=== PATIENT | female | born 1995 | race Caucasian/White ===

== ENCOUNTER 2019-05-09 10:12 | Inpatient (IN) | payer BC ==
[2019-05-09 10:49] VITALS: BMI 39.5
[2019-05-09] MEDS ORDERED: hydrALAZINE 20 MG/ML VIAL SLOW IVP PRN ×2 (11:12→13:28)
[2019-05-09] MEDS: Betamet Acet/Betamet Na Ph 30 MG/5 ML VIAL IM SCH (11:26)
[2019-05-09] MEDS ORDERED: Ondansetron PF 4 MG/2 ML Vial IVP PRN (13:28)
[2019-05-09] MEDS ORDERED: Promethazine HCl 25 MG/ML VIAL IM PRN (13:28)
[2019-05-09] MEDS ORDERED: NIFEdipine 10 MG CAP ONE (13:29)
[2019-05-09] MEDS ORDERED: NIFEdipine 10 MG CAP PO PRN (13:30)
--- NOTE | 2019-05-09 13:35 | PDOC.LDHP ---
Labor and Delivery H&P Chief complaint: other (increased BP at the office) HPI: Pt presents after office visit today with severe range BP noted there. Increased edema, no other PIH sx. On arrival to L and D and during observation , severe range BP noted. Current gestational age (weeks): 33 Due date: 06/21/19 Grav: 1 Para: 0 OB History Details: IUGR noted approx 30 weeks, seen by MFM, growth has improved Current complications: preeclampsia with severe features, IUGR, breech Abnormal US findings: Yes (breech, restricted growth) Past Medical History: none Previous surgical history: other (tonsil) Allergies/Adverse Reactions: Allergies Allergy/AdvReac Type Severity Reaction Status Date / Time No Known Allergies Allergy Unverified 05/09/19 10:47 Social history: none - Physical Exam Abnormal vital signs: severe range BP 130-170/80-100 General: NAD Heart: RRR Lungs: CTAB Abdomen: gravid Extremeties: pitting edema FHT: category 1 - OB Labs Blood type: O RH: negative Antibody Screen: negative HIV: negative RPR: negative HEPSAg: negative 1 hour GCT: positive 3 hour GTT: WNL GBS: unknown Additional Labs: CT pos with repeat testing neg - Assessment L&D Assessment: medically indicated induction (for preeclampsia) - Plan Plan: admit to L&D, informed consent obtained, anesthesia consult for pain management, other (NICU consult, magnesium for seizure prophylaxis if indicated , CS if delivery indicated today for breech, sp Celestone x 1) -: A/P: 24yo G1 @ 33.6 w severe range BP, admit for planned delivery. SP steroids @ 1126am today on initial presentation. Procardia x 1 given now, hydralazine PRN ordered. If BP sustained severe will start magnesium and move to delivery today, CS if breech persists at the time of delivery.
[2019-05-09 13:50] LABS: #Basophils 0.1 thou/uL (0.0-0.2); #Lymphocytes 1.7 thou/uL (1.20-3.40); #Monocytes 0.4 thou/uL (0.11-0.59); #Neutrophils 9.8 thou/uL (1.40-6.50); %Basophils 0.5 % (0.0-1.0); %Eosinophils 0.3 % (0.0-10.0); %Lymphocytes 14.5 % (21.0-51.0); %Neutrophils 81.8 % (42.0-75.0); Hemoglobin 14.2 g/dL (12.0-16.0); Mean Corpuscular HGB CONC 33.8 g/dL (32.0-36.0); Mean Corpuscular Hemoglobin 30.6 pg (27.0-31.0); Mean Corpuscular Volume 90.6 fL (78.0-98.0); Platelet Count 230 thou/uL (130-400); RBC Distribution Width 12.6 % (11.5-14.5); Red Blood Cell (RBC) Count 4.65 mill/uL (4.20-5.40)
[2019-05-09 14:20] LABS: ALT (SGPT) 12 U/L (8-55); AST (SGOT) 16 U/L (5-34); Albumin 3.8 g/dL (3.5-5.0); Alkaline Phosphatase 132 U/L (40-150); Anion Gap 12 mmol/L (10-20); BUN (Urea Nitrogen) 6 mg/dL (7.0-18.7); Bilirubin, Total 0.3 mg/dL (0.2-1.2); Calc. Creatinine Clearance 200 mL/min (70-130); Calcium 9.6 mg/dL (7.8-10.44); Carbon Dioxide 22 mmol/L (22-29); Chloride 104 mmol/L (98-107); Estimated GFR-MDRD Greater than 90; Globulin 2.9 g/dL (2.4-3.5); Glucose 69 mg/dL (70-105); Potassium 4.2 mmol/L (3.5-5.1); Protein, Total 6.7 g/dL (6.0-8.3); Sodium 134 mmol/L (136-145)
[2019-05-09 14:33] LABS: Syphilis Antibody Nonreactive (Nonreactive); Syphilis Antibody Index 0.03 S/CO (<1.00 Non-Reactive)
[2019-05-09 14:37] LABS: HBSAg Index 0.21 S/CO (0-0.99); Hep B Surf Ag Non-Reactive S/CO (NonReactive)
--- NOTE | 2019-05-09 15:01 | PDOC.EVN ---
Event Note - Event Note Event Note: Addendum to H and P: US reviewed and VTX presentation at time of BPP today. Will plan to repeat US prior to starting IOL to confirm presentation.
--- NOTE | 2019-05-09 15:18 | PDOC.APC ---
Antepartum Consult JULIA CORONA is a 24 year old female at [33 6/7] gestational weeks. I was asked by Dr Castro to speak with the patient regarding anticipated course for a baby born at 33-34 weeks. I spoke with the patient and her father. I outlined that the timing and mode of delivery is a decision that will be made by the OB service. Once the patient is taken for delivery, the resuscitation team will be present. The initial focus will be on respiratory stabilization and may include minimal assistance, CPAP or intubation with surfactant administration. I discussed that the patient will need to be admitted to the NICU in an isolette due to temperature instability associated with prematurity. We will then obtain IV access (peripheral will be first line, umbilical if unable to obtain peripheral) as babies are at risk for hypoglycemia. We discussed that babies born are at higher risk for feeding intolerance, infection and jaundice. I discussed that breastmilk is the best nutrition for babies and she is strongly encouraged to pump after delivery. Mother plans to breastfeed. I explained that the duration of hospital stay will be determined on the clinical course of the baby. I outlined the milestones that needed to be achieved to ensure safe discharge home. They had the opportunity to ask questions. Mother mentioned a "family history of SIDS" in her sibling and cousin. She stated she planned to cosleep given this history. We talked about the increased risk of associated with cosleeping and discussed ways to decrease risk of SIDS ( exclusive , separate sleep space free of blankets and stuffed animals, single fitted sheet, flat on back). She inquired about home monitoring. We discussed that babies are not routinely discharged home from this NICU with home monitoring unless on oxygen and that the AAP does not support the use of consumer products for O2/apnea monitoring as there has been no evidence that it decreases the risk of SIDS beyond that of safe sleep recommendations. I encouraged them to contact our service again if additional questions arise. I spent 30 minutes in consultation with the patient including face to face education and coordination of care. Labs: Ante Labs Hep Bs Antigen Non-Reactive S/CO (NonReactive) 05/09/19 13:38
--- NOTE | 2019-05-10 08:48 | PDOC.LDPN ---
Labor & Delivery Progress Note - Subjective Subjective: comfortable - Objective Vital signs reviewed and normal: yes (normal to mild range BP) General: NAD, resting FHT: category 1 - Assessment (1) Preeclampsia Code(s): O14.90 - UNSPECIFIED PRE-ECLAMPSIA, UNSPECIFIED TRIMESTER Current Visit: Yes Status: Acute Plan: continue plan of care -: A/P: HD #2, 34.0 weeks, admitted yesterday with severe range BP noted in clinic and on arrival to L and D. BP responded to one dose of nifedipine 10mg yesterday afternoon and have been normal to mild range for over 12 hours. We discussed continued close monitoring today, 2nd dose of celestone due at 1130, indications for delivery (severe BP today, requires BP med today, indication) vs. discharge criteria tomorrow if she is stable (normal to mild BP only, normal BPP and FHT and normal AM labs). Pt aware that NICU is full and that in the event she delivers and it is full the baby may be transferred to another hospital.
[2019-05-10] MEDS: Betamet Acet/Betamet Na Ph 30 MG/5 ML VIAL IM SCH (12:20)
[2019-05-11 06:03] LABS: Hemoglobin 12.4 g/dL (12.0-16.0); Mean Corpuscular HGB CONC 33.4 g/dL (32.0-36.0); Mean Corpuscular Hemoglobin 30.7 pg (27.0-31.0); Mean Corpuscular Volume 92.1 fL (78.0-98.0); Platelet Count 196 thou/uL (130-400); RBC Distribution Width 12.5 % (11.5-14.5); Red Blood Cell (RBC) Count 4.05 mill/uL (4.20-5.40); White Blood Cell (WBC) Count 12.4 thou/uL (4.8-10.8)
[2019-05-11 06:23] LABS: ALT (SGPT) 13 U/L (8-55); AST (SGOT) 15 U/L (5-34); Albumin 3.4 g/dL (3.5-5.0); Alkaline Phosphatase 106 U/L (40-150); Anion Gap 11 mmol/L (10-20); BUN (Urea Nitrogen) 8 mg/dL (7.0-18.7); Bilirubin, Total 0.2 mg/dL (0.2-1.2); Calc. Creatinine Clearance 203 mL/min (70-130); Calcium 8.8 mg/dL (7.8-10.44); Carbon Dioxide 22 mmol/L (22-29); Chloride 106 mmol/L (98-107); Estimated GFR-MDRD Greater than 90; Globulin 2.4 g/dL (2.4-3.5); Glucose 87 mg/dL (70-105); Protein, Total 5.8 g/dL (6.0-8.3); Sodium 135 mmol/L (136-145)
--- NOTE | 2019-05-11 09:19 | PDOC.LDPN ---
Labor & Delivery Progress Note - Subjective Subjective: comfortable - Objective Vital signs reviewed and normal: yes General: NAD FHT: category 1 - Assessment (1) Preeclampsia Code(s): O14.90 - UNSPECIFIED PRE-ECLAMPSIA, UNSPECIFIED TRIMESTER Current Visit: Yes Status: Acute Plan: continue plan of care, other -: A/P: Preeclampsia without severe features @ 34.1 with steroid benefit today at 1130. BP have been normal last 24hours. Labs WNL this AM, NST reactive, BPP report pending. Discussed close out patient monitoring if DC today with visits twice weekly, kick counts, BP at home and deliver for severe BP or features.
--- NOTE | 2019-05-11 09:53 | ULT ---
NONSTRESS BIOPHYSICAL PROFILE: HISTORY: Hypertension. COMPARISON: None. TECHNIQUE: Nonstress biophysical profile is performed. FINDINGS: Single intrauterine gestation. Vertex presentation. Anterior placenta. Limited evaluation for the presence or absence of previa. Cervical length appears to be between 4 and 4.8 cm. heart tones with a rate of 139 b.p.m. Amniotic fluid index is 5.0. NONSTRESS BIOPHYSICAL PROFILE: tone: 2. breathin. movement: 2. Amniotic fluid: 2. IMPRESSION: 1. Single intrauterine gestation. Vertex presentation. 2. heart tones with a rate of 139 b.p.m. 3. Nonstress biophysical profile score is 6 out of 8. 4. Amniotic fluid index of 5.0. Oligohydramnios. 5. Results of the study conveyed to Dr. Castro via [employer] and via phone call on 05/11/2019 at 8 :52 a.m. CODE CR POS: [facility]
--- NOTE | 2019-05-11 15:50 | ULT ---
DOPPLER STUDY: 05/11/19 Color Doppler with spectral analysis and velocity recordings obtained of umbilical artery. FINDINGS/IMPRESSION: Umbilical artery at placenta: Peak systolic 79 cm/s. End diastolic 37 cm/s. Mid umbilical artery: Peak systolic 91 cm/s. End diastolic 45 cm/s. Umbilical artery at insertion: Peak systolic 61 cm/s. End diastolic 20 cm/s. POS: [facility]
[2019-05-11 15:53] VITALS: BP 132/82; TEMP 98.6
--- NOTE | 2019-05-11 15:57 | ULT ---
BIOPHYSICAL PROFILE: 05/11/19 Indications: access status FINDINGS/IMPRESSION: movement: Score 2 tone: Score 2 breathing: Score 2 Amniotic fluid: Score 2 Total score: 8/8. The ASHLEY is recorded at 6.4 which indicates oligohydramnios. heart rate recorded at 144 beats per minute. Position: Vertex. Placenta: Anterior. POS: [facility]
--- NOTE | 2019-05-11 16:05 | PDOC.EVN ---
Event Note - Event Note Event Note: BPP 04/05, ASHLEY improved with hydration, good FM, reassuring status. Will FU Tuesday in office for BPP/OBV and labs, close out patient monitoring, continue BP checks at home.
--- NOTE | 2019-05-12 05:51 | DIS ---
DATE OF ADMISSION: 05/09/2019 DATE OF DISCHARGE: 05/11/2019 ADMISSION DIAGNOSIS: 33 weeks and 6 days, elevated blood pressures. DISCHARGE DIAGNOSIS: 34 weeks and 1 day with preeclampsia without severe features. HOSPITAL COURSE: Ms. Mary Loza was admitted after elevated blood pressures noted in the clinic and on arrival to Labor and Delivery at that time, she was noted to have a series of severe range blood pressures. She was admitted for observation and steroids. She received one oral dose of Procardia shortly after admission on 05/09/2019 and remained within normal to mild range pressures only, subsequent days in the hospital. The patient received her steroid benefit today the at approximately 11:30 this morning. She had normal CBC and CMP. She had a biophysical profile this morning that was 6/8 with breathing not appreciated and a repeat biophysical profile with a BPP of 8/8, reactive NST and ASHLEY just over 6 cm. The patient appreciated good movement throughout the day. She denies any symptoms of preeclampsia and her blood pressures were normal. She was discharged home today with instructions for close monitoring of her blood pressure at home. She has a blood pressure cuff and has been checking it regularly. She will continue to do so. She will come weekly to my office for exam, blood pressure check, lab evaluation, and surveillance. We will plan for delivery at 37 weeks and less indicated sooner for severe features. The patient has been given ER warnings and she agrees with the plan of care. Job ID: [id number]
== END 2019-05-11 16:33 | disposition home or self-care (01) | DRG 833 ==
LOC: L&D/OP 10:12 → EEVIPCON 15:42 → L&D 15:42 → 3SE 05-10 10:20
PROVIDERS: ADMIT Obstetrics & Gynecology; ATTEND Obstetrics & Gynecology
DX: O14.93 Unspecified pre-eclampsia, third trimester (principal); O36.5930 Maternal care for other known or suspected poor fetal growth, third trimester, not applicable or unspecified; O32.1XX0 Maternal care for breech presentation, not applicable or unspecified; Z3A.33 33 weeks gestation of pregnancy; Z67.91 Unspecified blood type, Rh negative
CPT/HCPCS: 36415; 76700; 76815; 76819; 80053; 85025; 85027; 86780; 86850; 86870; 86900; 86901; 87077; 87081; 87340; J0702

== ENCOUNTER 2019-05-14 09:22 | Day surgery (SDC) | payer BC ==
[2019-05-14 10:07] VITALS: BMI 39.6
[2019-05-14] MEDS ORDERED: Lidocaine 1% (PF) 30 ML VIAL SC PRN (10:13)
[2019-05-14] MEDS ORDERED: Promethazine HCl 25 MG/ML VIAL IM PRN (10:13)
[2019-05-14] MEDS ORDERED: Ondansetron PF 4 MG/2 ML Vial IVP PRN (10:13)
[2019-05-14] MEDS ORDERED: hydrALAZINE 20 MG/ML VIAL SLOW IVP PRN (10:13)
[2019-05-14] MEDS ORDERED: Butorphanol Tartrate 1 MG/ML VIAL SLOW IVP PRN (10:13)
[2019-05-14] MEDS ORDERED: Calcium Gluc 4.6 MEQ/10 ML (100 MG/ML) SLOW IVP PRN (10:13)
[2019-05-14] MEDS ORDERED: HYDROcodone/Acetaminophen 5/325 mg Tablet PO PRN ×2 (10:13)
[2019-05-14] MEDS ORDERED: Ibuprofen 800 MG TAB PO PRN (10:13)
[2019-05-14] MEDS ORDERED: NS / Oxytocin 40 units/1000ml 1,000 ML IV PRN (10:13)
[2019-05-14] MEDS ORDERED: Misoprostol 100 MCG TAB VAG SCH (10:15)
[2019-05-14] MEDS ORDERED: Magnesium Sulfate 20 GM/WATER 500 ML BAG IVPB SCH (10:15)
[2019-05-14] MEDS ORDERED: NS w/ Oxytocin 10 units 500 ML IV SCH (10:15)
[2019-05-14] MEDS ORDERED: Magnesium Sulfate 20 gm/500 ml 20 GM/500 ML BAG IVPB SCH (10:15)
[2019-05-14] MEDS ORDERED: Penicillin G Potassium 5 MILL.UNITS in Sodium Chloride 0.9% 100 ML IVPB SCH (10:15)
[2019-05-14] MEDS ORDERED: Penicillin G 2.5 MILL.units 2.5 MILL.UNITS in Premix Bag 1 BAG IVPB SCH (10:15)
[2019-05-14] MEDS ORDERED: Lactated Ringer's 1,000 ML IV SCH (10:15)
[2019-05-14] MEDS ORDERED: NIFEdipine 10 MG CAP PO PRN (10:16)
[2019-05-14] MEDS ORDERED: NIFEdipine 10 MG CAP ONE (10:49)
[2019-05-14 11:58] LABS: Hemoglobin 13.8 g/dL (12.0-16.0); Mean Corpuscular HGB CONC 33.3 g/dL (32.0-36.0); Mean Corpuscular Hemoglobin 30.6 pg (27.0-31.0); Mean Corpuscular Volume 91.7 fL (78.0-98.0); Mean Platelet Volume 8.2 fL (7.4-10.4); Platelet Count 189 thou/uL (130-400); RBC Distribution Width 12.5 % (11.5-14.5); Red Blood Cell (RBC) Count 4.51 mill/uL (4.20-5.40); White Blood Cell (WBC) Count 14.6 thou/uL (4.8-10.8)
[2019-05-14 12:17] LABS: ALT (SGPT) 20 U/L (8-55); AST (SGOT) 22 U/L (5-34); Albumin 3.6 g/dL (3.5-5.0); Alkaline Phosphatase 119 U/L (40-150); Anion Gap 15 mmol/L (10-20); BUN (Urea Nitrogen) 10 mg/dL (7.0-18.7); Bilirubin, Total 0.3 mg/dL (0.2-1.2); Calc. Creatinine Clearance 204 mL/min (70-130); Carbon Dioxide 19 mmol/L (22-29); Chloride 104 mmol/L (98-107); Estimated GFR-MDRD Greater than 90; Globulin 2.8 g/dL (2.4-3.5); Glucose 63 mg/dL (70-105); Potassium 3.9 mmol/L (3.5-5.1); Protein, Total 6.4 g/dL (6.0-8.3); Sodium 134 mmol/L (136-145)
[2019-05-14 12:35] LABS: HBSAg Index 0.22 S/CO (0-0.99); Hep B Surf Ag Non-Reactive S/CO (NonReactive)
[2019-05-14 12:35] LABS: Syphilis Antibody Nonreactive (Nonreactive); Syphilis Antibody Index 0.03 S/CO (<1.00 Non-Reactive)
--- NOTE | 2019-05-14 13:31 | PDOC.LDHP ---
Labor and Delivery H&P Chief complaint: other (sent from clinic with BP 180/100) HPI: Pt is a 24yo sent from clinic today with severe range BP. Pt reports BP at home higher since last night w severe range BP noted at home. Pt was admitted last week from clinic with concern for preeclampsia with severe features (BP) and rec'd steroid benefit. After one dose of antihypertensive on admission she had normal BP and was discharge home on Tuesday. BPP today with increased SD ratio in the office, ASHLEY 10cm. Current gestational age (weeks): 34 Due date: 06/21/19 Dating criteria: other Grav: 1 Para: 0 Current complications: preeclampsia with severe features Past Medical History: none Current medications: pre-abram vitamins Previous surgical history: other (tonsil) Allergies/Adverse Reactions: Allergies Allergy/AdvReac Type Severity Reaction Status Date / Time No Known Allergies Allergy Verified 05/14/19 10:02 Social history: none - Physical Exam Abnormal vital signs: BP in L and D 160/0174/80-100 General: NAD Heart: RRR Lungs: CTAB Abdomen: gravid Extremeties: pitting edema (1+) FHT: category 1 - OB Labs Blood type: O RH: negative Antibody Screen: negative HIV: negative RPR: negative HEPSAg: negative 1 hour GCT: positive 3 hour GTT: 3WNL GBS: positive Urine drug screen: negative Rubella: immune - Assessment L&D Assessment: medically indicated induction - Plan Plan: admit to L&D, cervical ripening, magnesium for seizure prophylaxis, anesthesia consult for pain management -: A/P: 24yo G1 @ 34.4 weeks sp steroid benefit on 05/11/19 with sustained severe range BP and indication for IOL with magnesium for seizure prophylaxis. FHT reassuring on admission.
[2019-05-14] MEDS ORDERED: Acetaminophen 500 MG TAB PO SCH (15:15)
== END 2019-05-14 15:21 | disposition short-term general hospital (02) ==
LOC: L&D/OP 09:22
PROVIDERS: ATTEND Obstetrics & Gynecology
DX: O14.13 Severe pre-eclampsia, third trimester (principal); Z3A.34 34 weeks gestation of pregnancy
CPT/HCPCS: 36415; 80053; 81003; 85027; 86780; 86850; 86900; 86901; 87340; J2001; J2405; J3475